=== PATIENT | female | born 1935 | race Caucasian/White ===

== ENCOUNTER 2023-12-08 11:11 | Emergency (ER) | payer MEDICARE, BC ==
[~2023-12-08] VITALS: Ht 160 cm; Wt 56.7 kg
[2023-12-08] MEDS: LIDOCAINE HCL 1% 20 ML VIAL TP ONE (12:00)
[2023-12-08] MEDS ORDERED: LIDOCAINE 1%-EPI 1:100,000 20 ML VIAL IJ ONE (12:17)
[2023-12-08] MEDS ORDERED: NEOMY/BACITRA/POLYMYXIN B OINT UD PACKET TP ONE ×2 (13:49→14:00)
[2023-12-08 14:06] VITALS: BP 116/76; TEMP 97; O2SAT 100
== END 2023-12-08 14:07 | disposition home or self-care (01) ==
LOC: ER 11:11
DX: S81.812A Laceration without foreign body, left lower leg, initial encounter (principal); S50.812A Abrasion of left forearm, initial encounter; K21.9 Gastro-esophageal reflux disease without esophagitis; Z88.2 Allergy status to sulfonamides; Z88.8 Allergy status to other drugs, medicaments and biological substances; W01.0XXA Fall on same level from slipping, tripping and stumbling without subsequent striking against object, initial encounter; Y93.89 Activity, other specified; Y92.89 Other specified places as the place of occurrence of the external cause; Y99.8 Other external cause status
CPT/HCPCS: A4606; A4663